=== PATIENT | female | born 1970 | race Caucasian/White ===

== ENCOUNTER 2022-01-20 21:05 | Emergency (ER) | payer OTHER ==
[~2022-01-20] VITALS: Ht 162.6 cm; Wt 75.0 kg
[2022-01-21 02:24] VITALS: BP 135/85
[2022-01-21] MEDS ORDERED: CYCL-448 PO (02:40)
[2022-01-21] MEDS ORDERED: ONDANSETRON HCL 4 MG TABLET PO ONE (02:45)
== END 2022-01-21 02:53 | disposition home or self-care (01) ==
LOC: EMS 21:09
DX: R07.89 Other chest pain (principal); E78.5 Hyperlipidemia, unspecified; V49.69XA Unspecified car occupant injured in collision with other motor vehicles in traffic accident, initial encounter; Y93.89 Activity, other specified; Y92.488 Other paved roadways as the place of occurrence of the external cause; Y99.8 Other external cause status
CPT/HCPCS: 99283; 71045; Q0162